=== PATIENT | female | born 1985 | race African-American/Black ===

== ENCOUNTER 2017-05-24 05:21 | Inpatient (IN) | payer OTHER ==
[2017-05-18 17:08] VITALS: BMI 45.7
[2017-05-24] MEDS ORDERED: ROPIVACAINE HCL 0.5% 30ML VIAL ONE (07:49)
[2017-05-24] MEDS ORDERED: MIDAZOLAM HCL 2 MG/2 ML SINGLE DOSE VIAL ONE ×2 (07:53)
[2017-05-24] MEDS ORDERED: ROCURONIUM BROMIDE 50 MG/5 ML VIAL ONE (09:54)
[2017-05-24] MEDS ORDERED: LIDOCAINE HCL/PF 2% SDV 5ML VIAL ONE (09:54)
[2017-05-24] MEDS ORDERED: PROPOFOL 20 ML ONE (09:54)
[2017-05-24] MEDS ORDERED: ceFAZolin SODIUM 1 GM VIAL ONE (10:12)
[2017-05-24] MEDS ORDERED: ceFAZolin SODIUM 1 GM VIAL IVPB ONE (10:12)
[2017-05-24] MEDS ORDERED: DEXAMETHASONE SOD PHOSPHATE 4 MG/1 ML VIAL ONE (10:17)
[2017-05-24] MEDS ORDERED: METRONIDAZOLE 500 MG PREMIXED 100 ML IVPB ONE (10:25)
[2017-05-24] MEDS ORDERED: HYDROmorphone HCL/PF 1 MG/ML VIAL (FOR PYXIS CHARGING ONLY) ONE (10:38)
[2017-05-24] MEDS ORDERED: DESFLURANE GAS 240 ML BOTTLE IH ONE (11:04)
[2017-05-24] MEDS ORDERED: NEOSTIGMINE METHYLSULFATE 0.5 MG/ML - 10 ML MDV ONE (11:27)
[2017-05-24] MEDS ORDERED: GLYCOPYRROLATE 0.2 MG/1 ML VIAL ONE (11:28)
[2017-05-24] MEDS ORDERED: PROMETHAZINE HCL 25 MG/1 ML VIAL IVPB PRN (11:29)
[2017-05-24] MEDS ORDERED: ONDANSETRON 4 MG/2 ML VIAL IVPUSH PRN (11:29)
[2017-05-24] MEDS ORDERED: DEXAMETHASONE SOD PHOSPHATE 4 MG/1 ML VIAL IVPUSH PRN (11:29)
[2017-05-24] MEDS ORDERED: HYDROmorphone *PCA* 10MG/50ML DISP.SYRIN PCA SCH (11:30)
[2017-05-24] MEDS ORDERED: MEPERIDINE HCL CARPU-JECT 25 MG/1 ML DISP.SYRIN IVPUSH ONE (12:18)
[2017-05-24] MEDS: HYDROmorphone HCL CARPU-JECT 1 MG/1 ML DISP.SYRIN IVPUSH PRN ×2 (12:20→12:30)
[2017-05-24] MEDS ORDERED: HYDROmorphone HCL CARPU-JECT 2 MG/1 ML DISP.SYRIN ONE (12:25)
[2017-05-24] MEDS ORDERED: ONDANSETRON 4 MG/2 ML VIAL IVPB PRN (12:36)
[2017-05-24] MEDS ORDERED: IBUPROFEN 800 MG/8 ML IJ IVPB PRN (12:36)
--- NOTE | 2017-05-24 12:48 | HP ---
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 This information was not provided previously by the patient, however she agreed to accept blood products in case of life or situation.)
--- NOTE | 2017-05-24 12:52 | OP ---
Operative Note - Note: Operative Date: 05/24/17 Pre-Operative Diagnosis: 31 yo P0 With large fibroid uterus, menorrhagia and sever anemia Operation: Supracervical abdominal Hysterectomy and bilateral salpingectomy Findings: 1. 22 week size uterus 2. Normal tubes and ovaries Post-Operative Diagnosis: Same as Pre-op Surgeon: Juanita Bradley Talent Management Specialist: Kendrick Dutta Anesthesiologist/VP STRATEGIC PARTNERSHIPS: Trae Malcolm Anesthesia: General Specimens Removed: Uterus without cervix. Bilateral fallopian tubes Estimated Blood Loss (mls): 100 Drains, Volume Out (mls): 100 Fluid Volume Replaced (mls): 1,700 Operative Report Dictated: Yes
[2017-05-24] MEDS: ELECTROLYTE-148 SOLN 1,000 ML IV SCH ×2 (14:00→23:05)
[2017-05-24] MEDS ORDERED: CEFAZOLIN (PRE-DOCKED) 1 GM in DEXTROSE 5%-WATER - 50 ML IVPB SCH (18:00)
[2017-05-24] MEDS: CEFAZOLIN 1 GM in DEXTROSE 5%-WATER - 50 ML IVPB SCH (18:27)
[2017-05-25] MEDS: ENOXAPARIN NA (PORCINE) 30 MG/0.3 ML DISP.SYRIN SQ SCH ×4 (00:04→23:49)
[2017-05-25] MEDS: CEFAZOLIN 1 GM in DEXTROSE 5%-WATER - 50 ML IVPB SCH (01:36)
[2017-05-25] MEDS ORDERED: PCA PUMP KEY 1 EACH EACH ONE (05:23)
[2017-05-25] MEDS: ELECTROLYTE-148 SOLN 1,000 ML IV SCH (06:00)
[2017-05-25 08:15] LABS: MCH 22.8 pg (25.7-33.7); MCHC 32.9 g/dl (32.0-36.0); MEAN CELL VOLUME 69.2 fl (80-96); MEAN PLT VOLUME 6.6 fl (7.5-11.1); PLATELET COUNT 493 K/MM3 (134-434); RDW 31.7 % (11.6-15.6); WHITE BLOOD COUNT 9.8 K/mm3 (4.0-10.0)
[2017-05-25] MEDS: oxyCODONE HCL 5 MG TABLET PO PRN ×2 (10:43→17:33)
[2017-05-25] MEDS: IBUPROFEN 600 MG TABLET (FP) PO PRN ×3 (10:44→22:12)
--- NOTE | 2017-05-25 11:45 | OP ---
DATE OF OPERATION: 05/24/2017 PREOPERATIVE DIAGNOSIS: A 31-year-old para 0 with fibroid uterus, menorrhagia, and severe anemia. OPERATION: Supracervical abdominal hysterectomy and bilateral salpingectomy. FINDINGS: 1. A 78-[id number]-[id number] uterus with long cervix. 2. Normal tubes and ovaries. POSTOPERATIVE DIAGNOSIS: A 31-year-old para 0 with fibroid uterus, menorrhagia, and severe anemia. SURGEON: Juanita Bradley MD ENGINEERING PROJECT MANAGER: Kendrick Dutta MD ANESTHESIOLOGIST: Trae Malcolm MD DESCRIPTION OF THE OPERATIVE PROCEDURE: After ensuring informed consent and abdominal intramuscular block was performed, patient was brought to the operating room where general anesthesia was administered and patient was placed in dorsal supine position. Vagina was prepped with Betadine. Preoperative antibiotics, Ancef and Flagyl, were given. The abdomen was prepped and draped in the sterile fashion. A Pfannenstiel skin incision was made with scalpel and carried down to the level of fascia with the Bovie cautery. Fascia was dissected bilaterally with the Bovie cautery and superiorly and inferiorly off the rectus abdominis muscle with the Bovie cautery, as well. The muscle was split in the midline. Peritoneum was identified, tented with Melina clamps, incised with Metzenbaum scissors, and subsequently entered and dissected inferiorly and superiorly with good visualization of underlying organs. The uterus was exteriorized and was found to be approximately 22 weeks in size, completely distorted, globular sized. No dominant fibroid identified. Normal tubes and ovaries were identified and were found to be displaced anteriorly. The bowel was packed with lap sponges. The round ligament was identified on the left and cauterized with Impact LigaSure, same was performed on the right side, and the bladder flap was created with the LigaSure, and bladder was retracted downwards with the Marvin. The broad ligament was entered utilizing Bovie cautery, and utero-ovarian ligament was dissected with Impact and clamped with Melina clamp and cauterized and then subsequently tied with 3-0 tie bilaterally on each side. Each tube bilaterally was identified and dissected off the mesosalpinx and sent to Pathology. The broad ligament was dissected further. Uterine artery was skeletonized on each side. The ovary on each side was taken out of the operating field. The uterine artery on the right was doubly clamped with Thong as well as with the Impact above the Thong. It was burned and subsequently suture ligated, as well. Subsequently, Thong and Impact were used simultaneously to dissect the uterine artery further off the cervix by placing a descending clamp on the uterus. Identical procedure was performed on the left side dissecting the uterine artery, securing it with 0 Vicryl, and subsequently creating another downward pedicle off the cervix dissecting the uterine artery further off the cervix and also suture ligating it with 0 Vicryl. Subsequently, the fundus was dissected off the cervical stump and sent to Pathology. The cervix was found to be long and difficulty would have been encountered in dissecting it off since patients pelvis was found to be exceptionally deep. So, the endocervical canal was burned with Bovie cautery to decrease the amount of endocervical tissue, and cervical stump was oversewn and imbricated with 0 Vicryl with figure-of-8. Subsequently, peritoneum was closed over the cervical stump with 2-0 Vicryl. Excellent hemostasis was noted. Abdomen was irrigated with normal saline, and excellent hemostasis was noted in all the pedicles. Lap sponges were removed, and peritoneum was closed with 0 Vicryl with good visualization of underlying organs. The muscle was reapproximated at the midline with mattress sutures x2. The fascia was closed with 0 Vicryl in 2 separate running stitches meeting at the midline. Subsequently, the subcutaneous tissue was closed in 2 layers using 2-0 chromic suture to decrease the amount of space. The skin was closed with subcuticular stitch using 4-0 Monocryl. Excellent hemostasis was noted throughout. Estimated blood loss was 100 mL. Patient drained 100 mL of urine and received 1700 mL of IV fluids. All lap sponges and instruments were counted and were correct x2. Patient was extubated and brought to the recovery room in stable condition. Seema [id number]
--- NOTE | 2017-05-25 11:53 | PN ---
Progress Note, Physician Chief Complaint: s/p open total hysterectomy bilateral salpingectomy under general anesthesia History of Present Illness: post op day one with bilateal TAP blocks and web weaver for post op pain control - Current Medication List Current Medications: Active Medications Diphenhydramine HCl (Benadryl Injection -) 12.5 mg IVPUSH ONCE PRN PRN Reason: FOR ITCHING Enoxaparin Sodium (Lovenox -) 30 mg SQ Q12H [facility] Last Admin: 05/25/17 00:05 Dose: 30 mg Parenteral Electrolytes (Plasma-Lyte 148 -) 1,000 mls @ 125 mls/hr IV ASDIR SPENCER Last Admin: 05/25/17 06:00 Dose: 125 mls/hr Ibuprofen (Motrin -) 600 mg PO Q6H PRN PRN Reason: FEVER Last Admin: 05/25/17 10:44 Dose: 600 mg Ibuprofen (Caldolor Injection -) 800 mg IVPB Q6H PRN PRN Reason: FEVER Last Admin: 05/25/17 06:34 Dose: 800 mg Ondansetron HCl (Zofran Injection) 4 mg IVPB Q6H PRN PRN Reason: NAUSEA Oxycodone HCl (Roxicodone -) 5 mg PO Q4H PRN PRN Reason: PAIN LEVEL 1-5 Stop: 05/25/17 16:37 Last Admin: 05/25/17 10:43 Dose: 5 mg Promethazine HCl (Phenergan Injection -) 12.5 mg IVPB Q6H PRN PRN Reason: NAUSEA AND/OR VOMITING - Objective Vital Signs: Vital Signs Temperature 98.1 F 05/25/17 08:00 Pulse Rate 90 05/25/17 08:00 Respiratory Rate 20 05/25/17 08:00 Blood Pressure 102/61 05/25/17 08:00 O2 Sat by Pulse Oximetry (%) 98 05/24/17 15:15 Constitutional: Yes: Well Nourished Cardiovascular: Yes: WNL Respiratory: Yes: WNL Gastrointestinal: Yes: WNL Labs: CBC, BMP 05/25/17 07:20 Assessment/Plan Patient complains of viceral pain, helped by ASPHALT DAUBER, ASPHALT DAUBER has since been discontinued and patient is taking PO analgesics and is on a diet. No adverse reaction to anesthetic, patient reports relief from TAP blocks. The dept of anesthesiology will sign off care at this time
--- NOTE | 2017-05-25 13:08 | PN ---
Progress Note, Physician Chief Complaint: 31 yo P0 s/p SPENCER sitting, eating regular food, voided pain well controlled - Current Medication List Current Medications: Active Medications Diphenhydramine HCl (Benadryl Injection -) 12.5 mg IVPUSH ONCE PRN PRN Reason: FOR ITCHING Enoxaparin Sodium (Lovenox -) 30 mg SQ Q12H [facility] Last Admin: 05/25/17 12:35 Dose: 30 mg Parenteral Electrolytes (Plasma-Lyte 148 -) 1,000 mls @ 125 mls/hr IV ASDIR SPENCER Last Admin: 05/25/17 06:00 Dose: 125 mls/hr Ibuprofen (Motrin -) 600 mg PO Q6H PRN PRN Reason: FEVER Last Admin: 05/25/17 10:44 Dose: 600 mg Ibuprofen (Caldolor Injection -) 800 mg IVPB Q6H PRN PRN Reason: FEVER Last Admin: 05/25/17 06:34 Dose: 800 mg Ondansetron HCl (Zofran Injection) 4 mg IVPB Q6H PRN PRN Reason: NAUSEA Oxycodone HCl (Roxicodone -) 5 mg PO Q4H PRN PRN Reason: PAIN LEVEL 1-5 Stop: 05/25/17 16:37 Last Admin: 05/25/17 10:43 Dose: 5 mg Promethazine HCl (Phenergan Injection -) 12.5 mg IVPB Q6H PRN PRN Reason: NAUSEA AND/OR VOMITING - Objective Vital Signs: Vital Signs Temperature 98.1 F 05/25/17 08:00 Pulse Rate 90 05/25/17 08:00 Respiratory Rate 20 05/25/17 08:00 Blood Pressure 102/61 05/25/17 08:00 O2 Sat by Pulse Oximetry (%) 98 05/24/17 15:15 Constitutional: Yes: Well Nourished HENT: Yes: WNL Neck: Yes: WNL Cardiovascular: Yes: WNL Respiratory: Yes: CTA Bilaterally Gastrointestinal: Yes: Normal Bowel Sounds Musculoskeletal: Yes: WNL Extremities: Yes: WNL Edema: No Peripheral Pulses WNL: Yes Integumentary: Yes: WNL Wound/Incision: Yes: Clean/Dry Neurological: Yes: WNL, Alert, Oriented Psychiatric: Yes: WNL Labs: CBC, BMP 05/25/17 07:20 Assessment/Plan 31 yo P0 POD # 1 s/p SPENCER/BL salpingectomy VSS, Afibrile doing well Voiding, OOB Using insentive spirometer H/H decreases minimally, stable Ambulation Encoraged cont routine postop care
[2017-05-25] MEDS ORDERED: BISACODYL 10 MG SUPP.RECT RC PRN (18:32)
[2017-05-26] MEDS: IBUPROFEN 600 MG TABLET (FP) PO PRN ×2 (09:49→21:02)
[2017-05-26] MEDS: ENOXAPARIN NA (PORCINE) 30 MG/0.3 ML DISP.SYRIN SQ SCH ×2 (11:12→23:50)
--- NOTE | 2017-05-26 14:18 | PATH ---
Surgical Pathology Report Patient Name: KATHIA OCAMPO [facility]. Rec. #: [id number] /Age/Gender: 1985 (Age: 31) / F Account: [id number] Location: [facility] OBS/IMMIGRATION JUDGE Taken: 05/24/2017 Received: 05/24/2017 Reported: 05/26/2017 Physicians: Juanita Bradley M.D. Specimen(s) Received RIGHT FALLOPIAN TUBE, LEFT FALLOPIAN TUBE AND UTERUS WITH FIBROID Clinical History Leiomyoma of uterus Final Diagnosis UTERUS WITH FIBROID, BILATERAL FALLOPIAN TUBES, SUPRACERVICAL HYSTERECTOMY WITH BILATERAL SALPINGECTOMY: UTERUS WITH LEIOMYOMA (1394 G). PROLIFERATIVE ENDOMETRIUM. ENDOCERVIX WITHOUT SIGNIFICANT PATHOLOGIC FINDINGS. BILATERAL FALLOPIAN TUBES WITH PARATUBAL CYSTS. Electronically Signed [place] Gatica M.D. Gross Description Received in formalin labeled "right fallopian tube, left fallopian tube and uterus with fibroid," is a 1394 g supracervically amputated uterus with no attached adnexa. The undesignated bilateral fallopian tubes are separately received within the same container. The specimen measures 18.0 cm from superior to inferior, 12.5 cm from left to right and 12.0 cm from anterior to posterior. The serosa is pink-ball and smooth. The endometrial cavity measures 5.5 cm from superior to inferior and 7 cm from cornu to cornu. The endometrium is hyperemic and lush, measuring up to 0.4 cm in thickness. The myometrium displays a large, bulging intramural nodule superior to the fundus. The nodule measures 13 cm in greatest dimension. The cut surface is ball, firm to rubbery with a whorled architecture. No areas of hemorrhage or necrosis are identified. The remaining myometrium is ball-pink and unremarkable. Arbitrarily designated "fallopian tube 1" measures 1.5 cm in length. The outer surface is pink-ball with 3 paratubal cysts attached to the fimbria. The paratubal cysts measure up to 0.7 cm in greatest dimension. Sectioning of the fallopian tube reveals an unremarkable lumen. Arbitrarily designated "fallopian tube 2" measures 3 cm in length. The outer surface is pink-ball and smooth with 3 paratubal cysts attached to the fimbria. The paratubal cysts measure up to 0.6 cm in greatest dimension. Sectioning of the fallopian tube reveals an unremarkable lumen. Ground Systems Engineer sections are submitted in 15 cassettes as follows: 1-cervical stump margin of resection; 2-2-fstjzvfmizqovl; 0-57-ykrwlwvtid nodule; 12-fallopian tube 1 fimbria with paratubal cysts; 13-cross sections of fallopian tube 1; 14-fallopian tube 2 fimbria with paratubal cysts; 15-cross sections of fallopian tube 2. 05/24/2017 [facility]05/24/2017
--- NOTE | 2017-05-26 17:16 | PN ---
Progress Note, Physician Chief Complaint: 31 yo P0 s/p SPENCER sitting, eating regular food, voided pain well controlled, + flatus - Current Medication List Current Medications: Active Medications Bisacodyl (Dulcolax Suppository -) 10 mg RC DAILY PRN PRN Reason: CONSTIPATION Last Admin: 05/25/17 22:12 Dose: 10 mg Diphenhydramine HCl (Benadryl Injection -) 12.5 mg IVPUSH ONCE PRN PRN Reason: FOR ITCHING Enoxaparin Sodium (Lovenox -) 30 mg SQ Q12H [facility] Last Admin: 05/26/17 11:12 Dose: 30 mg Ibuprofen (Motrin -) 600 mg PO Q6H PRN PRN Reason: FEVER Last Admin: 05/26/17 09:49 Dose: 600 mg Ibuprofen (Caldolor Injection -) 800 mg IVPB Q6H PRN PRN Reason: FEVER Last Admin: 05/25/17 06:34 Dose: 800 mg Ondansetron HCl (Zofran Injection) 4 mg IVPB Q6H PRN PRN Reason: NAUSEA Promethazine HCl (Phenergan Injection -) 12.5 mg IVPB Q6H PRN PRN Reason: NAUSEA AND/OR VOMITING - Objective Vital Signs: Vital Signs Temperature 97.9 F 05/26/17 10:21 Pulse Rate 82 05/26/17 10:21 Respiratory Rate 19 05/26/17 10:21 Blood Pressure 113/69 05/26/17 10:21 O2 Sat by Pulse Oximetry (%) 98 05/24/17 15:15 Constitutional: Yes: Well Nourished, No Distress, Calm HENT: Yes: WNL Neck: Yes: WNL Cardiovascular: Yes: WNL Respiratory: Yes: CTA Bilaterally Gastrointestinal: Yes: Normal Bowel Sounds, Soft Genitourinary: Yes: WNL Extremities: Yes: WNL Wound/Incision: Yes: Clean/Dry Neurological: Yes: WNL Psychiatric: Yes: WNL Labs: CBC, BMP 05/25/17 07:20 Assessment/Plan 31 yo P0 POD # 2 s/p SPENCER/BL salpingectomy VSS, Afibrile doing well Voiding, OOB Using incentive spirometer Ambulation Encouraged cont routine postop care
[2017-05-27] MEDS: ENOXAPARIN NA (PORCINE) 30 MG/0.3 ML DISP.SYRIN SQ SCH (10:59)
[2017-05-27] MEDS: IBUPROFEN 600 MG TABLET (FP) PO PRN (11:00)
[2017-05-27 11:50] VITALS: BP 117/64; PULSE 71; TEMP 97.7
--- NOTE | 2017-05-27 13:28 | DS ---
Physical Examination Vital Signs: Vital Signs Temperature 97.7 F 05/27/17 10:00 Pulse Rate 71 05/27/17 10:00 Respiratory Rate 18 05/27/17 10:00 Blood Pressure 117/64 05/27/17 10:00 O2 Sat by Pulse Oximetry (%) 100 05/27/17 04:36 Constitutional: Yes: Well Nourished, No Distress, Calm HENT: Yes: Normocephalic Neck: Yes: WNL Cardiovascular: Yes: Regular Rate and Rhythm Respiratory: Yes: CTA Bilaterally Gastrointestinal: Yes: Normal Bowel Sounds Renal/: Yes: WNL Extremities: Yes: WNL Integumentary: Yes: WNL Wound/Incision: Yes: Clean/Dry, Well Approximated, Sutures Intact Neurological: Yes: WNL ...Motor Strength: WNL Psychiatric: Yes: WNL Labs: CBC, BMP 05/25/17 07:20 Discharge Summary Reason For Visit: LEIOMYOMA OF UTERUS, FEMALE INFERTILITY morbid obesity Procedures: Principal: Hysterectomy/Bilateral salpingectomy Hospital Course: unremarkable - Instructions Diet, Activity, Other Instructions: Follow up with MD in 1 week Ambulate during the day Do no walk up more than 4 flight of stairs No work on Tuesday until cleared by MD Referrals: Juanita Bradley MD [Staff Physician] - Disposition: HOME - Home Medications Comprehensive Discharge Medication List: Ambulatory Orders Latanoprost 0.005% Eye Drops [Xalatan 0.005% Eye Drops -] 1 drop OU HS 05/18/17 Albuterol Sulfate Inhaler - [Ventolin Hfa Inhaler -] 1 - 2 inh PO Q4H PRN
[2017-05-27] MEDS ORDERED: oxyCODONE HCL 5 MG TABLET PO ONE (13:45)
== END 2017-05-27 15:45 | disposition home or self-care (01) | DRG 743 ==
LOC: JSAMEDAYSX 05:21 → EDSTATUS 10:00 → J3W 15:00
PROVIDERS: ADMIT Obstetrics & Gynecology; ATTEND Obstetrics & Gynecology
PROC: 0UB70ZX Excision of Bilateral Fallopian Tubes, Open Approach, Diagnostic (ICD-10-PCS; 2017-05-24)
PROC: 0UT90ZL Resection of Uterus, Supracervical, Open Approach (ICD-10-PCS; principal; 2017-05-24 09:00)
DX: D25.9 Leiomyoma of uterus, unspecified (principal); N92.0 Excessive and frequent menstruation with regular cycle; D64.9 Anemia, unspecified
CPT/HCPCS: 36415; 84703; 85027; 86850; 86900; 86901; 88307-TC; 94010; 94760